=== PATIENT | female | born 1970 | race Asian ===

== ENCOUNTER → 2017-08-30 | Outpatient (CLI) | payer OTHER | LOC: FIMAGING 08:57 | PROVIDERS: ATTEND Internal Medicine | DX: D05.11 Intraductal carcinoma in situ of right breast (principal) ==

== ENCOUNTER → 2018-03-21 | Outpatient (CLI) | payer OTHER | LOC: FIMAGING 08:36 | PROVIDERS: ATTEND Surgery | DX: Z12.31 Encounter for screening mammogram for malignant neoplasm of breast (principal); D05.11 Intraductal carcinoma in situ of right breast ==

== ENCOUNTER 2018-08-15 08:30 | Day surgery (SDC) | payer OTHER | END 2018-08-15 13:45 | disposition home or self-care (01) | LOC: FIMAGING 08:30 ==